=== PATIENT | male | born 1980 | race African-American/Black ===

== ENCOUNTER 2018-03-17 11:11 | Inpatient (IN) | payer OTHER ==
[2018-03-17 12:32] VITALS: BMI 22.8
--- NOTE | 2018-03-17 14:39 | HP ---
CIWA Score - CIWA Score Nausea/Vomitin-Mild Nausea/No Vomiting Muscle Tremors: 4-Moderate,w/Arms Extend Anxiety: 3 Agitation: 3 Paroxysmal Sweats: 1-Minimal Palms Moist Orientation: 0-Oriented Tacttile Disturbances: 1-Very Mild Itch/Numbness Auditory Disturbances: 0-None Visual Disturbances: 0-None Headache: 2-Mild CIWA-Ar Total Score: 15 Admission ROS BHS - HPI Chief Complaint: alcohol withdrawal sx Allergies/Adverse Reactions: Allergies Allergy/AdvReac Type Severity Reaction Status Date / Time No Known Allergies Allergy Verified 03/17/18 14:27 History of Present Illness: 37 years old male with long history of alcohol nicotine dependence has hiv since 1999 and depression is admitted to detox Exam Limitations: No Limitations - Ebola screening Have you traveled outside of the country in the last 21 days: No (N) Have you had contact with anyone from an Ebola affected area: No Have you been sick,other than usual withdrawal symptoms: No Do you have a fever: No - Review of Systems Constitutional: Loss of Appetite, Changes in sleep, Unintentional Wgt. Loss, Unexplained wgt Loss EENT: reports: No Symptoms Reported Respiratory: reports: No Symptoms reported Cardiac: reports: No Symptoms Reported GI: reports: Nausea, Poor Appetite, Poor Fluid Intake, Abdominal cramping : reports: No Symptoms Reported Musculoskeletal: reports: No Symptoms Reported Integumentary: reports: No Symptoms Reported Neuro: reports: Tremors Endocrine: reports: No Symptoms Reported Hematology: reports: No Symptoms Reported Psychiatric: reports: Judgement Intact, Orientated x3, Anxious, Depressed Other Systems: Reviewed and Negative Patient History - Patient Medical History Hx Anemia: No Hx Asthma: No Hx Chronic Obstructive Pulmonary Disease (COPD): No Hx Cancer: No Hx Cardiac Disorders: No Hx Congestive Heart Failure: No Hx Hypertension: No Hx Hypercholesterolemia: No Hx Pacemaker: No HX Cerebrovascular Accident: No Hx Seizures: No Hx Dementia: No Hx Diabetes: No Hx Gastrointestinal Disorders: No Hx Liver Disease: No Hx Genitourinary Disorders: No Hx Sexually Transmitted Disorders: No Hx Renal Disease (ESRD): No Hx Thyroid Disease: No Hx Human Immunodeficiency Virus (HIV): Yes (SINCE 1999--NOT CURRENTLY ON MEDS. [id number] ) Hx Hepatitis C: No Hx Depression: Yes Hx Suicide Attempt: No Hx Bipolar Disorder: No Hx Schizophrenia: No - Patient Surgical History Past Surgical History: Yes Hx Neurologic Surgery: No Hx Cataract Extraction: No Hx Cardiac Surgery: No Hx Lung Surgery: No Hx Breast Surgery: No Hx Breast Biopsy: No Hx Abdominal Surgery: Yes (COLORECTAL SX DUE TO HPV IN 2011 ) Hx Appendectomy: No Hx Cholecystectomy: No Hx Genitourinary Surgery: No Hx Orthopedic Surgery: No Other Surgical History: LIPOMA FROM BACK OF HEAD IN 2012 Anesthesia Reaction: No - PPD History Previous Implant?: Yes Documented Results: Negative w/proof Implanted On Prior [facility] Admission?: Yes Date: 09/14/17 Results: 0 MM PPD to be Administered?: No - Smoking Cessation Smoking history: Current every day smoker Have you smoked in the past 12 months: Yes Aproximately how many cigarettes per day: 20 Cigars Per Day: 0 Hx Chewing Tobacco Use: No Initiated information on smoking cessation: Yes 'Breaking Loose' booklet given: 03/17/18 - Substance & Tx. History Hx Alcohol Use: Yes Hx Substance Use: No Substance Use Type: Alcohol Hx Substance Use Treatment: Yes (08/[facility] - Substances Abused Alcohol-vodka/beer Route: Oral Frequency: Daily Amount used: 2 pts./1-6 pk. Age of first use: 16 Date of Last Use: 03/17/18 Crstal meth Route: Smoking Frequency: Daily Amount used: $200 Age of first use: 33 Date of Last Use: 03/15/18 Family Disease History - Family Disease History Family Disease History: Heart Disease: Mother (HTN) Admission Physical Exam BHS - Vital Signs Vital Signs: Vital Signs - 24 hr 03/17/18 12:24 Temperature 97.2 F L Pulse Rate 94 H Respiratory 18 Rate Blood Pressure 143/73 - Physical General Appearance: Yes: Appropriately Dressed, Mild Distress, Thin, Tremorous, Irritable, Sweating, Anxious HEENTM: Yes: Hearing grossly Normal, Normocephalic, Normal Voice Respiratory: Yes: Chest Non-Tender, Lungs Clear, Normal Breath Sounds, No Respiratory Distress, No Accessory Muscle Use Neck: Yes: Supple, Trachea in good position Breast: Yes: Breasts Symetrical, No Discharge Cardiology: Yes: Regular Rhythm, S1, S2, Tachycardia Abdominal: Yes: Normal Bowel Sounds, Non Tender, Flat Genitourinary: Yes: Within Normal Limits Back: Yes: Normal Inspection Musculoskeletal: Yes: full range of Motion, Gait Steady, Back pain, Muscle Pain Extremities: Yes: Normal Inspection, Normal Range of Motion, Non-Tender, Tremors Neurological: Yes: Fully Oriented, Alert, Motor Strength 5/5, Normal Response, Depressed Affect Integumentary: Yes: Warm Lymphatic: Yes: Within Normal Limits - Diagnostic (1) Alcohol dependence with uncomplicated withdrawal Current Visit: Yes Status: Acute (2) Nicotine dependence Current Visit: Yes Status: Acute Qualifiers: Nicotine product type: cigarettes Substance use status: in withdrawal Qualified Code(s): F17.213 - Nicotine dependence, cigarettes, with withdrawal (3) Human immunodeficiency virus infection Current Visit: Yes Status: Chronic Comment: since 1999 not on medication follow up with infectious disease primary care physician BHS Breath Alcohol Content Breath Alcohol Content: 0.033 Urine Drug Screen - Results Drug Screen Negative: Yes Urine Drug Screen Results: AMP-Amphetamines, MET-Methamphetamine
[2018-03-17] MEDS ORDERED: MENTHOL/PHENOL 1 EACH UD MM PRN (14:52)
[2018-03-17] MEDS ORDERED: P-EPHED 60MG/TRIPROLIDI 2.5MG TABLET PO PRN (14:52)
[2018-03-17] MEDS ORDERED: chlordiazePOXIDE HCL 25 MG CAPSULE PO PRN (14:52)
[2018-03-17] MEDS ORDERED: guaiFENesin/D-METHORPHAN HB 10 ML UNIT-DOSE CUPS PO PRN (14:52)
[2018-03-17] MEDS ORDERED: MAGNESIUM HYDROX 2400MG/30ML ORAL SUSPENSION 30 ML CUP PO PRN (14:52)
[2018-03-17] MEDS ORDERED: LOPERAMIDE HCL 2 MG CAPSULE PO PRN (14:52)
[2018-03-17] MEDS ORDERED: NICOTINE POLACRILEX 4 MG GUM BC PRN (14:52)
[2018-03-17] MEDS ORDERED: ACETAMINOPHEN 325 MG TABLET (FP) PO PRN (14:52)
[2018-03-17] MEDS ORDERED: IBUPROFEN 400 MG TABLET (FP) PO PRN (14:52)
[2018-03-17] MEDS ORDERED: MAGNESIUM CITRATE 300 ML BOTTLE PO PRN (14:52)
[2018-03-17] MEDS ORDERED: NICOTINE 21 MG/24 HOURS TOPICAL PATCH TD PRN (15:20)
[2018-03-17 19:45] LABS: URINE APPEARANCE CLEAR; URINE BILIRUBIN NEGATIVE (<2.0 mg/dL); URINE COLOR LTYELLOW; URINE GLUCOSE (UA) NEGATIVE (NEGATIVE); URINE KETONE NEGATIVE (NEGATIVE); URINE LEUK ESTERASE NEGATIVE (NEGATIVE); URINE NITRITE NEGATIVE (NEGATIVE); URINE PROTEIN NEGATIVE (NEGATIVE); URINE UROBILINOGEN NEGATIVE mg/dL (0.2-1.0)
[2018-03-17] MEDS ORDERED: MELATONIN 5 MG TABLETS PO PRN (22:00)
[2018-03-17] MEDS: THIAMINE HCL 100 MG TABLET (FP) PO SCH (22:39)
[2018-03-17] MEDS: chlordiazePOXIDE HCL 25 MG CAPSULE PO SCH (22:40)
[2018-03-18] MEDS: chlordiazePOXIDE HCL 25 MG CAPSULE PO SCH ×4 (05:36→22:22)
[2018-03-18] MEDS: PRENATAL VITAMINS W/ FOLIC ACID TABLET (FP) PO SCH (10:30)
[2018-03-18 10:43] LABS: HEMATOCRIT 40.7 % (35.4-49); HEMOGLOBIN 13.7 GM/dL (11.7-16.9); MCH 30.6 pg (25.7-33.7); MCHC 33.7 g/dl (32.0-35.9); MEAN CELL VOLUME 90.7 fl (80-96); MEAN PLT VOLUME 6.5 fl (7.5-11.1); PLATELET COUNT 319 K/MM3 (134-434); RBC 4.49 M/mm3 (4.00-5.60); RDW 14.6 % (11.9-15.9); WHITE BLOOD COUNT 4.6 K/mm3 (4.0-10.0)
[2018-03-18 10:53] LABS: CHLORIDE 107 mmol/L (98-107); SODIUM 140 mmol/L (136-145)
[2018-03-18 11:05] LABS: ALBUMIN 3.5 g/dl (3.4-5.0); ALK PHOS 75 U/L (45-117); ANION GAP 6 (8-16); BILIRUBIN,TOTAL 0.6 mg/dL (0.2-1.0); BLOOD UREA NITROGEN 12 mg/dL (7-18); CALCIUM 8.8 mg/dL (8.5-10.1); CO2 27 mmol/L (21-32); CREATININE 1.2 mg/dL (0.7-1.3); GLUCOSE,RANDOM 107 mg/dL (74-106); SGOT/AST 24 U/L (15-37); SGPT/ALT 28 U/L (12-78); TOT PROT 7.3 g/dl (6.4-8.2)
--- NOTE | 2018-03-18 11:52 | CONSULT ---
[facility] Psychiatric Consult - Data Date of interview: 03/18/18 Admission source: [facility] Identifying data: Readmission to [facility] for this 37 y/o AA male seeking detox treatment on for alcohol and crystal methamphetamine dependence.Patient is single without dependents,domiciled,unemployed and supported on Public Assistance. Substance Abuse History: Discussed with the patient.Confirmed current [facility] report on his use of methamphetamine + alcohol.Smoking Cessation. Smoking history: Current every day smoker. Have you smoked in the past 12 months: Yes. Aproximately how many cigarettes per day: 20. Cigars Per Day: 0. Hx Chewing Tobacco Use: No. Initiated information on smoking cessation: Yes. 'Breaking Loose' booklet given: 03/17/18. - Substance & Tx. History. Hx Alcohol Use: Yes. Hx Substance Use: No. Substance Use Type: Alcohol. Hx Substance Use Treatment: Yes (08/2017 [facility]). - Substances Abused. Alcohol-vodka/ beer. Route: Oral. Frequency: Daily. Amount used: 2 pts./1-6 pk. Age of first use: 16. Date of Last Use: 03/17/18. Crstal meth. Route: Smoking. Frequency: Daily. Amount used: $200. Age of first use: 33. Date of Last Use: 03/15/18 Medical History: HIV infection since 1999 (not on HAART medications),antecedent of colorectal surgery (HPV) and excision of lipoma (scalp). Psychiatric History: No reported history of psychiatric hospitalizations.No contact with psychiatric OPD care providers.Mr Garcia declares that he has been prescribed seroquel 50 mg/hs (at a previous rehabilitation center) for insomnia.Patient denies history of suicide attempts. Physical/Sexual Abuse/Trauma History: Patient denies. Additional Comment: Urine Drug Screen Results: AMP-Amphetamines, MET- Methamphetamine.Noted. Mental Status Exam - Mental Status Exam Alert and Oriented to: Time, Place, Person Cognitive Function: Good Patient Appearance: Well Groomed Mood: Hopeful, Euthymic Affect: Appropriate, Normal Range Patient Behavior: Appropriate, Cooperative Speech Pattern: Clear Voice Loudness: Normal Thought Process: Intact, Goal Oriented Thought Disorder: Not Present Hallucinations: Denies Suicidal Ideation: Denies Homicidal Ideation: Denies Insight/Judgement: Poor Sleep: Poorly, Difficulty falling asleep Appetite: Good Muscle strength/Tone: Normal Gait/Station: Normal Psychiatric Findings - Problem List ([place] 1, 2,3) (1) Alcohol dependence with uncomplicated withdrawal Current Visit: Yes Status: Acute (2) Methamphetamine dependence Current Visit: Yes Status: Acute (3) Nicotine dependence Current Visit: Yes Status: Acute Qualifiers: Nicotine product type: cigarettes Substance use status: in withdrawal Qualified Code(s): F17.213 - Nicotine dependence, cigarettes, with withdrawal (4) Insomnia Current Visit: Yes Status: Acute - Initial Treatment Plan Initial Treatment Plan: Psychoeducation.Sleep hygiene discussed.Detoxification in progress.Seroquel 50 mg po hs.Side effects/benefits reviewed with the patient.Mr Garcia agrees with this careplan.Observation.
[2018-03-18 12:43] LABS: RPR REACTIVE 1:8 (NONREACTIVE)
[2018-03-18 15:38] LABS: TREPONEMA ANTIBODY REACTIVE (NONREACTIVE)
--- NOTE | 2018-03-18 18:34 | PN ---
S CIWA - CIWA Score Nausea/Vomitin-No Nausea/No Vomiting Muscle Tremors: 4-Moderate,w/Arms Extend Anxiety: 3 Agitation: 1-Slight > Activity Paroxysmal Sweats: 3 Orientation: 0-Oriented Tacttile Disturbances: 0-None Auditory Disturbances: 1-Very Mild Visual Disturbances: 2-Mild Sensitivity Headache: 3-Moderate CIWA-Ar Total Score: 17 BHS Progress Note (SOAP) Subjective: Sweating, Tremors, H/A, Interrupted Sleep. Objective: PATIENT A & O X 3, OBSERVED AMBULATING ON UNIT. NO ACUTE DISTRESS. 03/18/18 18:31 Vital Signs Temperature 96.4 F L 03/18/18 17:31 Pulse Rate 81 03/18/18 17:31 Respiratory Rate 18 03/18/18 17:31 Blood Pressure 103/64 03/18/18 17:31 O2 Sat by Pulse Oximetry (%) Laboratory Tests 03/17/18 03/18/18 03/18/18 18:00 07:50 07:50 WBC 4.6 D RBC 4.49 Hgb 13.7 Hct 40.7 MCV 90.7 MCH 30.6 MCHC 33.7 RDW 14.6 Plt Count 319 MPV 6.5 L Sodium 140 Potassium 4.0 Chloride 107 Carbon Dioxide 27 Anion Gap 6 L BUN 12 Creatinine 1.2 Creat Clearance w eGFR > 60 Random Glucose 107 H D Calcium 8.8 Total Bilirubin 0.6 D AST 24 D ALT 28 D Alkaline Phosphatase 75 Total Protein 7.3 Albumin 3.5 Urine Color Ltyellow Urine Appearance Clear Urine pH 7.0 Ur Specific [place] 1.015 Urine Protein Negative Urine Glucose (UA) Negative Urine Ketones Negative Urine Blood Negative Urine Nitrite Negative Urine Bilirubin Negative Urine Urobilinogen Negative Ur Leukocyte Esterase Negative RPR Titer T.pallidum Ab (MHA) 03/18/18 07:50 WBC RBC Hgb Hct MCV MCH MCHC RDW Plt Count MPV Sodium Potassium Chloride Carbon Dioxide Anion Gap BUN Creatinine Creat Clearance w eGFR Random Glucose Calcium Total Bilirubin AST ALT Alkaline Phosphatase Total Protein Albumin Urine Color Urine Appearance Urine pH Ur Specific [place] Urine Protein Urine Glucose (UA) Urine Ketones Urine Blood Urine Nitrite Urine Bilirubin Urine Urobilinogen Ur Leukocyte Esterase RPR Titer Reactive 1:8 H D T.pallidum Ab (MHA) Reactive LABS NOTED. Assessment: 03/18/18 18:31 WITHDRAWAL SYMPTOMS. Plan: CONTINUE DETOX.
[2018-03-18] MEDS: QUEtiapine FUMARATE 50 MG TABLET PO SCH (22:22)
[2018-03-18] MEDS: THIAMINE HCL 100 MG TABLET (FP) PO SCH (22:22)
[2018-03-19] MEDS: chlordiazePOXIDE HCL 25 MG CAPSULE PO SCH ×3 (05:29→17:25)
[2018-03-19] MEDS: PRENATAL VITAMINS W/ FOLIC ACID TABLET (FP) PO SCH (10:07)
[2018-03-19] MEDS: MAG HYDROX/AL HYDROX/SIMETH 30 ML UNIT-DOSE CUP PO PRN (12:23)
--- NOTE | 2018-03-19 16:29 | PN ---
S CIWA - CIWA Score Nausea/Vomitin Muscle Tremors: 3 Anxiety: 3 Agitation: 2 Paroxysmal Sweats: 2 Orientation: 0-Oriented Tacttile Disturbances: 1-Very Mild Itch/Numbness Auditory Disturbances: 0-None Visual Disturbances: 0-None Headache: 1-Very Mild CIWA-Ar Total Score: 14 S Progress Note (SOAP) Subjective: Sweating, headache, interrupted sleep; patient noted with acute syphilis; as per patient, he was treated for syphilis at [facility] on 03/16/18 in which he got a shot plus 4 pills and was told to return to clinic in 30 days for second shot. Patient denies any symptoms of syphilis. Objective: 03/19/18 16:28 Last Vital Signs Temp Pulse Resp BP Pulse Ox 98.3 F 120 H 18 126/83 03/19/18 13:46 03/19/18 13:46 03/19/18 13:46 03/19/18 13:46 Laboratory Tests 03/17/18 03/18/18 03/18/18 18:00 07:50 07:50 WBC 4.6 D RBC 4.49 Hgb 13.7 Hct 40.7 MCV 90.7 MCH 30.6 MCHC 33.7 RDW 14.6 Plt Count 319 MPV 6.5 L Sodium 140 Potassium 4.0 Chloride 107 Carbon Dioxide 27 Anion Gap 6 L BUN 12 Creatinine 1.2 Creat Clearance w eGFR > 60 Random Glucose 107 H D Calcium 8.8 Total Bilirubin 0.6 D AST 24 D ALT 28 D Alkaline Phosphatase 75 Total Protein 7.3 Albumin 3.5 Urine Color Ltyellow Urine Appearance Clear Urine pH 7.0 Ur Specific [place] 1.015 Urine Protein Negative Urine Glucose (UA) Negative Urine Ketones Negative Urine Blood Negative Urine Nitrite Negative Urine Bilirubin Negative Urine Urobilinogen Negative Ur Leukocyte Esterase Negative RPR Titer T.pallidum Ab (MHA) 03/18/18 07:50 WBC RBC Hgb Hct MCV MCH MCHC RDW Plt Count MPV Sodium Potassium Chloride Carbon Dioxide Anion Gap BUN Creatinine Creat Clearance w eGFR Random Glucose Calcium Total Bilirubin AST ALT Alkaline Phosphatase Total Protein Albumin Urine Color Urine Appearance Urine pH Ur Specific [place] Urine Protein Urine Glucose (UA) Urine Ketones Urine Blood Urine Nitrite Urine Bilirubin Urine Urobilinogen Ur Leukocyte Esterase RPR Titer Reactive 1:8 H D T.pallidum Ab (MHA) Reactive Labs reviewed: RPR+ Assessment: 03/19/18 16:29 Withdrawal symptoms Noted with acute syphilis Plan: Continue detox Encouraged PO hydration Acute syphilis: treated as per patient
[2018-03-19] MEDS: QUEtiapine FUMARATE 50 MG TABLET PO SCH (22:25)
[2018-03-19] MEDS: THIAMINE HCL 100 MG TABLET (FP) PO SCH (22:25)
[2018-03-19] MEDS: chlordiazePOXIDE 5 MG CAPSULE PO SCH (22:25)
[2018-03-20] MEDS: chlordiazePOXIDE 5 MG CAPSULE PO SCH ×3 (05:30→18:00)
[2018-03-20] MEDS: PRENATAL VITAMINS W/ FOLIC ACID TABLET (FP) PO SCH (10:13)
--- NOTE | 2018-03-20 10:39 | PN ---
BHS Progress Note (SOAP) Subjective: ANXIETY, SWEATS, FATIGUE. Objective: 03/20/18 10:37 Vital Signs 03/20/18 03/20/18 03/20/18 03:30 06:07 09:21 Temperature 96.4 F L 98.3 F Pulse Rate 73 93 H Respiratory 18 18 20 Rate Blood Pressure 120/70 109/68 Laboratory Tests 03/17/18 03/18/18 03/18/18 18:00 07:50 07:50 WBC 4.6 D RBC 4.49 Hgb 13.7 Hct 40.7 MCV 90.7 MCH 30.6 MCHC 33.7 RDW 14.6 Plt Count 319 MPV 6.5 L Sodium 140 Potassium 4.0 Chloride 107 Carbon Dioxide 27 Anion Gap 6 L BUN 12 Creatinine 1.2 Creat Clearance w eGFR > 60 Random Glucose 107 H D Calcium 8.8 Total Bilirubin 0.6 D AST 24 D ALT 28 D Alkaline Phosphatase 75 Total Protein 7.3 Albumin 3.5 Urine Color Ltyellow Urine Appearance Clear Urine pH 7.0 Ur Specific [place] 1.015 Urine Protein Negative Urine Glucose (UA) Negative Urine Ketones Negative Urine Blood Negative Urine Nitrite Negative Urine Bilirubin Negative Urine Urobilinogen Negative Ur Leukocyte Esterase Negative RPR Titer T.pallidum Ab (MHA) 03/18/18 07:50 WBC RBC Hgb Hct MCV MCH MCHC RDW Plt Count MPV Sodium Potassium Chloride Carbon Dioxide Anion Gap BUN Creatinine Creat Clearance w eGFR Random Glucose Calcium Total Bilirubin AST ALT Alkaline Phosphatase Total Protein Albumin Urine Color Urine Appearance Urine pH Ur Specific [place] Urine Protein Urine Glucose (UA) Urine Ketones Urine Blood Urine Nitrite Urine Bilirubin Urine Urobilinogen Ur Leukocyte Esterase RPR Titer Reactive 1:8 H D T.pallidum Ab (MHA) Reactive LABS NOTED- FIRST TREATMENT RECENTLY ON 03/17/18 PER PREVIOUS NOTES(SEE NOTE OF 03/18/18). Assessment: 03/20/18 10:38 WITHDRAWAL SX Plan: CONTINUE DETOX
[2018-03-20] MEDS: MAG HYDROX/AL HYDROX/SIMETH 30 ML UNIT-DOSE CUP PO PRN (21:15)
[2018-03-20] MEDS: QUEtiapine FUMARATE 50 MG TABLET PO SCH (22:03)
[2018-03-20] MEDS: chlordiazePOXIDE HCL 10 MG CAPSULE PO SCH (22:03)
[2018-03-20] MEDS: THIAMINE HCL 100 MG TABLET (FP) PO SCH (22:03)
--- NOTE | 2018-03-21 00:52 | EKG ---
Test Reason : Blood Pressure : / mmHG Vent. Rate : 076 BPM Atrial Rate : 076 BPM P-R Int : 160 ms QRS Dur : 094 ms QT Int : 394 ms P-R-T Axes : 074 079 060 degrees QTc Int : 443 ms NORMAL SINUS RHYTHM NORMAL ECG WHEN COMPARED WITH ECG OF 12-SEP-2017 15:56, NO SIGNIFICANT CHANGE WAS FOUND Confirmed by BOBBY JOHNSON MD ([id number]) on 03/21/2018 12:51:52 AM Referred By: Confirmed By:BOBBY JOHNSON MD
[2018-03-21] MEDS: chlordiazePOXIDE HCL 10 MG CAPSULE PO SCH (05:55)
[2018-03-21 06:19] VITALS: BP 115/74; PULSE 70; TEMP 96.9
--- NOTE | 2018-03-21 11:00 | PN ---
BHS Progress Note (SOAP) Subjective: DETOX COMPLETED. ALERT O X 3. NAD. PT REPORTS HE IS GOING HOME TODAY AND WILL FOLLOW UP WITH AFTERCARE AT [facility]. REHAB. Objective: 03/21/18 10:58 Vital Signs 03/21/18 03/21/18 03:30 06:19 Temperature 96.9 F L Pulse Rate 70 Respiratory 18 18 Rate Blood Pressure 115/74 Laboratory Tests 03/17/18 03/18/18 03/18/18 18:00 07:50 07:50 WBC 4.6 D RBC 4.49 Hgb 13.7 Hct 40.7 MCV 90.7 MCH 30.6 MCHC 33.7 RDW 14.6 Plt Count 319 MPV 6.5 L Sodium 140 Potassium 4.0 Chloride 107 Carbon Dioxide 27 Anion Gap 6 L BUN 12 Creatinine 1.2 Creat Clearance w eGFR > 60 Random Glucose 107 H D Calcium 8.8 Total Bilirubin 0.6 D AST 24 D ALT 28 D Alkaline Phosphatase 75 Total Protein 7.3 Albumin 3.5 Urine Color Ltyellow Urine Appearance Clear Urine pH 7.0 Ur Specific [place] 1.015 Urine Protein Negative Urine Glucose (UA) Negative Urine Ketones Negative Urine Blood Negative Urine Nitrite Negative Urine Bilirubin Negative Urine Urobilinogen Negative Ur Leukocyte Esterase Negative RPR Titer T.pallidum Ab (MHA) 03/18/18 07:50 WBC RBC Hgb Hct MCV MCH MCHC RDW Plt Count MPV Sodium Potassium Chloride Carbon Dioxide Anion Gap BUN Creatinine Creat Clearance w eGFR Random Glucose Calcium Total Bilirubin AST ALT Alkaline Phosphatase Total Protein Albumin Urine Color Urine Appearance Urine pH Ur Specific [place] Urine Protein Urine Glucose (UA) Urine Ketones Urine Blood Urine Nitrite Urine Bilirubin Urine Urobilinogen Ur Leukocyte Esterase RPR Titer Reactive 1:8 H D T.pallidum Ab (MHA) Reactive PT WILL FOLLOW UP WITH MEDICAL CARE WITH PCP AT [facility] C[facility] WITH EYAD SHETH. Assessment: 03/21/18 11:00 MEDICALLY STABLE Plan: D/C PT TODAY
--- NOTE | 2018-03-21 11:06 | DS ---
[facility] Detox Discharge Summary Admission Date: 03/17/18 Discharge Date: 03/21/18 - History Present History: Alcohol Dependence, Cocaine Dependence Additional Comments: DETOX COMPLETED. ALERT O X 3. NAD. PT REPORTS PRIMARY CARE WITH MS DOMENIC NP AT [facility]. Pertinent Past History: PLEASE SEE DX BELOW - Physical Exam Results Vital Signs: Vital Signs Temperature 96.9 F L 03/21/18 06:19 Pulse Rate 70 03/21/18 06:19 Respiratory Rate 18 03/21/18 06:19 Blood Pressure 115/74 03/21/18 06:19 O2 Sat by Pulse Oximetry (%) Pertinent Admission Physical Exam Findings: WITHDRAWAL SX Laboratory Tests 03/17/18 03/18/18 03/18/18 18:00 07:50 07:50 WBC 4.6 D RBC 4.49 Hgb 13.7 Hct 40.7 MCV 90.7 MCH 30.6 MCHC 33.7 RDW 14.6 Plt Count 319 MPV 6.5 L Sodium 140 Potassium 4.0 Chloride 107 Carbon Dioxide 27 Anion Gap 6 L BUN 12 Creatinine 1.2 Creat Clearance w eGFR > 60 Random Glucose 107 H D Calcium 8.8 Total Bilirubin 0.6 D AST 24 D ALT 28 D Alkaline Phosphatase 75 Total Protein 7.3 Albumin 3.5 Urine Color Ltyellow Urine Appearance Clear Urine pH 7.0 Ur Specific [place] 1.015 Urine Protein Negative Urine Glucose (UA) Negative Urine Ketones Negative Urine Blood Negative Urine Nitrite Negative Urine Bilirubin Negative Urine Urobilinogen Negative Ur Leukocyte Esterase Negative RPR Titer T.pallidum Ab (MHA) 03/18/18 07:50 WBC RBC Hgb Hct MCV MCH MCHC RDW Plt Count MPV Sodium Potassium Chloride Carbon Dioxide Anion Gap BUN Creatinine Creat Clearance w eGFR Random Glucose Calcium Total Bilirubin AST ALT Alkaline Phosphatase Total Protein Albumin Urine Color Urine Appearance Urine pH Ur Specific [place] Urine Protein Urine Glucose (UA) Urine Ketones Urine Blood Urine Nitrite Urine Bilirubin Urine Urobilinogen Ur Leukocyte Esterase RPR Titer Reactive 1:8 H D T.pallidum Ab (MHA) Reactive SEE H/P. CURRENTLY TREATED FOR REACTIVE RPR ON 03/16/18 AND TO FOLLOW UP SCHEDULED PER PATIENT. - Treatment Hospital Course: Detox Protocol Followed, Detoxed Safely, Responded well, Discharged Condition Good, Rehab Referral Accepted Patient has Accepted a Rehab Referral to: [facility] - Medication Discharge Medications: Ambulatory Orders Quetiapine Fumarate [Seroquel -] 50 mg PO HS #30 tablet 03/21/18 - Diagnosis (1) Alcohol dependence with uncomplicated withdrawal Status: Acute (2) Human immunodeficiency virus infection Status: Chronic (3) Nicotine dependence Status: Acute Qualifiers: Nicotine product type: cigarettes Substance use status: in withdrawal Qualified Code(s): F17.213 - Nicotine dependence, cigarettes, with withdrawal (4) Cocaine dependence, uncomplicated Status: Acute (5) Weight loss Status: Acute - AMA Did Patient Leave Against Medical Advice: No
== END 2018-03-21 09:10 | disposition home or self-care (01) | DRG 774 ==
LOC: YASAS 11:11 → Y3N 15:01
PROVIDERS: ADMIT Internal Medicine; ATTEND Internal Medicine
PROC: HZ2ZZZZ Detoxification Services for Substance Abuse Treatment (ICD-10-PCS; principal; 2018-03-17)
DX: F10.230 Alcohol dependence with withdrawal, uncomplicated (principal); F14.20 Cocaine dependence, uncomplicated; F15.20 Other stimulant dependence, uncomplicated; F17.210 Nicotine dependence, cigarettes, uncomplicated; Z21 Asymptomatic human immunodeficiency virus [HIV] infection status; G47.00 Insomnia, unspecified; R63.4 Abnormal weight loss; Z68.22 Body mass index [BMI] 22.0-22.9, adult
CPT/HCPCS: 36415; 80053; 81003; 85027; 86593; 86780; 93005; 93010